=== PATIENT | male | born 1985 | race Caucasian/White ===

== ENCOUNTER → 2021-09-15 | Outpatient (CLI) | payer OTHER ==
--- NOTE | 2021-09-15 13:07 | RAD ---
EXAM: Scrotal sonogram. HISTORY: Left testicular pain. TECHNIQUE: Najera scale and color Doppler sonographic imaging of the scrotum with spectral analysis was performed. COMPARISON: None. FINDINGS: The testes are normal in size and demonstrate normal symmetric blood flow. There is no foca l testicular parenchymal lesion. There is a 5 mm right epididymal cyst. The epididymides are stable i n size and demonstrate symmetric blood flow. There are suspected bilateral varicoceles. No hydrocele is seen. IMPRESSION: 1. Suspected bilateral varicoceles. 2. Small right epididymal cyst. 3. Unremarkable testes. Electronically signed by: Silvia Lynch MD (09/15/2021 1:04 PM) [id number]
== END ==
LOC: US 12:08
PROVIDERS: ATTEND Student in an Organized Health Care Education/Training Program
DX: N50.3 Cyst of epididymis (principal)
CPT/HCPCS: 76870